=== PATIENT | female | born 1975 | race Caucasian/White ===

== ENCOUNTER 2016-10-19 18:21 | Emergency (ER) | payer OTHER ==
[~2016-10-19] VITALS: Ht 170.2 cm; Wt 79.4 kg
[2016-10-19 18:21] VITALS: BP 151/90
[2016-10-19] MEDS ORDERED: ACETAMINOPHEN 325 MG TAB PO ONE (19:30)
== END 2016-10-19 19:56 | disposition home or self-care (01) ==
LOC: M ED 19:38
DX: S29.011A Strain of muscle and tendon of front wall of thorax, initial encounter (principal); V43.62XA Car passenger injured in collision with other type car in traffic accident, initial encounter; Y92.410 Unspecified street and highway as the place of occurrence of the external cause; Y93.89 Activity, other specified; Y99.8 Other external cause status; J30.2 Other seasonal allergic rhinitis; F17.200 Nicotine dependence, unspecified, uncomplicated

== ENCOUNTER → 2017-01-30 | Outpatient (REF) | payer OTHER | LOC: M SFHCPLAZ 11:58 | PROVIDERS: ATTEND Family Medicine | DX: Z13.220 Encounter for screening for lipoid disorders (principal); Z13.1 Encounter for screening for diabetes mellitus ==

== ENCOUNTER → 2017-01-30 | Outpatient (REF) | payer OTHER | LOC: M SFHCPLAZ 09:04 | PROVIDERS: ATTEND Family Medicine | DX: L57.0 Actinic keratosis (principal); L85.9 Epidermal thickening, unspecified; L08.9 Local infection of the skin and subcutaneous tissue, unspecified ==

== ENCOUNTER → 2017-02-03 | Outpatient (REF) | payer OTHER | LOC: M SFHCPLAZ 11:42 | PROVIDERS: ATTEND Family Medicine | DX: Z01.419 Encounter for gynecological examination (general) (routine) without abnormal findings (principal); Z11.51 Encounter for screening for human papillomavirus (HPV) ==

== ENCOUNTER → 2017-02-10 | Outpatient (CLI) | payer OTHER ==
--- NOTE | 2017-02-10 14:29 | REPMRS ---
Patient History The patient states she has not had a clinical breast exam in over a year. Baseline Mammogram Family history of colorectal cancer in maternal grandmother at age 50 or over. Digital Woman Screen Mammo: February 10, 2017 - Exam #: [id number] Bilateral CC and MLO view(s) were taken. Technologist: Nati Granda, Technologist FINDINGS: There are scattered fibroglandular densities. There is no evidence of cancer on this mammogram. ASSESSMENT: BI-RADS/ACR category 2 mammogram. Benign finding(s). Recommendation Routine screening mammogram of both breasts in 1 year (for women over age 40). This mammogram was interpreted with the aid of an FDA-approved computer-aided dectection system. Electronically Signed By: Guerrero Hargrove MD 02/10/17 [id number]
== END ==
LOC: M WHC 13:15
PROVIDERS: ATTEND Family Medicine
DX: Z12.31 Encounter for screening mammogram for malignant neoplasm of breast (principal)

== ENCOUNTER 2017-12-08 15:50 | Emergency (ER) | payer OTHER | END 2017-12-08 19:14 | disposition home or self-care (01) | LOC: M ED 15:50 | DX: S90.31XA Contusion of right foot, initial encounter (principal); W22.8XXA Striking against or struck by other objects, initial encounter; Y92.89 Other specified places as the place of occurrence of the external cause; J45.909 Unspecified asthma, uncomplicated; F17.210 Nicotine dependence, cigarettes, uncomplicated | CPT/HCPCS: 73630 ==

== ENCOUNTER 2018-03-30 13:24 | Emergency (ER) | payer OTHER ==
[2018-03-30] MEDS ORDERED: METOCLOPRAMIDE INJ 10MG/2ML VIAL (J2765) IV (16:00)
[2018-03-30] MEDS ORDERED: diphenhydrAMINE INJ 50MG/ML VIAL (J1200) IV (16:00)
[2018-03-30] MEDS: NS 1,000 ML IV (16:23)
[2018-03-30] MEDS: KETOROLAC 30 MG/ML VIAL (J1885) IV (16:24)
[2018-03-30 16:42] LABS: BASO % 0.3 % (0.0-1.0); EOS # 0.3 10^3/uL (0.0-0.50); EOS % 2.3 % (0.0-3.0); HEMATOCRIT 44.4 % (36.0-47.0); IMMATURE GRANULOCYTE % 0.3 % (0-3.0); LYMPH # 3.1 10^3/uL (1.5-4.5); LYMPH % 27.1 % (24.0-44.0); MEAN CORPUSCULAR HEMOGLOBIN 30.7 pg (27.0-33.0); MEAN CORPUSCULAR HGB CONC 33.8 g/dl (32.0-36.5); MONO # 1.1 10^3/uL (0.0-0.8); MONO % 9.7 % (0.0-5.0); NEUTROPHILS # 6.8 10^3/uL (1.8-7.7); NEUTROPHILS % 60.3 % (36.0-66.0); PLATELET COUNT, AUTOMATED 334 10^3/uL (150-450); RED BLOOD COUNT 4.88 10^6/uL (4.00-5.40); RED CELL DISTRIBUTION WIDTH 12.3 % (11.5-14.5); WHITE BLOOD COUNT 11.3 10^3/uL (4.0-10.0)
[2018-03-30 16:49] LABS: KETONE, URINE AUTO RFX TRACE mg/dL (NEGATIVE); LEUKOCYTE ESTERASE UR AUTO RFX NEGATIVE (NEGATIVE); MUCUS, URINE RFX SMALL (NEGATIVE); NITRITE, URINE AUTO RFX NEGATIVE (NEGATIVE); RBC, URINE AUTO RFX 4 /HPF (0-3); SPECIFIC GRAVITY UR AUTO RFX 1.011 (1.002-1.035); SQUAM EPITHELIAL CELL UR AURFX 5 /HPF (0-6); WBC, URINE AUTO RFX 1 /HPF (0-3)
[2018-03-30 17:01] LABS: ANION GAP 6 MEQ/L (8-16); BLOOD UREA NITROGEN 8 MG/DL (7-18); CARBON DIOXIDE LEVEL 28 MEQ/L (21-32); CHLORIDE LEVEL 106 MEQ/L (98-107); CREATININE FOR GFR 0.76 MG/DL (0.55-1.30); GLOMERULAR FILTRATION RATE > 60.0 (>58); GLUCOSE, FASTING 76 MG/DL (70-100); MAGNESIUM LEVEL 2.1 MG/DL (1.8-2.4); POTASSIUM SERUM 3.7 MEQ/L (3.5-5.1); SODIUM LEVEL 140 MEQ/L (136-145)
== END 2018-03-30 18:01 | disposition home or self-care (01) ==
LOC: M ED 13:24
DX: R51 Headache (principal); J32.9 Chronic sinusitis, unspecified; J45.909 Unspecified asthma, uncomplicated; F17.210 Nicotine dependence, cigarettes, uncomplicated
CPT/HCPCS: J1885

== ENCOUNTER → 2018-04-13 | Outpatient (REF) | payer OTHER ==
[2018-04-13 12:00] LABS: APPEARANCE, URINE CLEAR (CLEAR); BACTERIA, URINE AUTO NEGATIVE (NEGATIVE); BILIRUBIN, URINE AUTO NEGATIVE (NEGATIVE); BLOOD, URINE BLOOD NEGATIVE (NEGATIVE); COLOR, URINE STRAW (YELLOW); GLUCOSE, URINE (UA) AUTO NEGATIVE (NEGATIVE); KETONE, URINE AUTO NEGATIVE (NEGATIVE); LEUKOCYTE ESTERASE, URINE AUTO NEGATIVE (NEGATIVE); NITRITE, URINE AUTO NEGATIVE (NEGATIVE); PROTEIN, URINE AUTO NEGATIVE (NEGATIVE); RBC, URINE AUTO 2 /HPF (0-3); SPECIFIC GRAVITY URINE AUTO 1.002 (1.002-1.035); SQUAMOUS EPITHELIAL CELL UR AU 1 /HPF (0-6); UROBILINOGEN, URINE AUTO 0.2 mg/dL (0.0-2.0); WBC, URINE AUTO 0 /HPF (0-3)
== END ==
LOC: M SFHCPLAZ 11:10
DX: R31.29 Other microscopic hematuria (principal)

== ENCOUNTER → 2018-12-15 | Outpatient (REF) | payer OTHER ==
[~2018-12-15] MED LIST: ALBU17IN2 INH
[2018-12-15 11:10] LABS: APPEARANCE, URINE HAZY (CLEAR); BACTERIA, URINE AUTO NEGATIVE (NEGATIVE); BILIRUBIN, URINE AUTO NEGATIVE (NEGATIVE); BLOOD, URINE BLOOD NEGATIVE (NEGATIVE); COLOR, URINE YELLOW (YELLOW); GLUCOSE, URINE (UA) AUTO NEGATIVE (NEGATIVE); KETONE, URINE AUTO TRACE mg/dL (NEGATIVE); LEUKOCYTE ESTERASE, URINE AUTO NEGATIVE (NEGATIVE); MUCUS, URINE SMALL (NEGATIVE); NITRITE, URINE AUTO NEGATIVE (NEGATIVE); PROTEIN, URINE AUTO NEGATIVE (NEGATIVE); RBC, URINE AUTO 5 /HPF (0-3); SPECIFIC GRAVITY URINE AUTO 1.026 (1.002-1.035); SQUAMOUS EPITHELIAL CELL UR AU 10 /HPF (0-6); WBC, URINE AUTO 1 /HPF (0-3)
== END ==
LOC: M LAB REF 10:01
PROVIDERS: ATTEND Student in an Organized Health Care Education/Training Program
DX: R30.0 Dysuria (principal)

== ENCOUNTER → 2019-08-12 | Outpatient (REF) | payer OTHER ==
[~2019-08-12] MED LIST changes: -ALBU17IN2 INH; +PROV108A INH
[2019-08-12 11:36] LABS: HEMATOCRIT 45.3 % (36.0-47.0); MEAN CORPUSCULAR HEMOGLOBIN 30.7 pg (27.0-33.0); MEAN CORPUSCULAR HGB CONC 33.1 g/dl (32.0-36.5); MEAN CORPUSCULAR VOLUME 92.8 fl (80.0-96.0); PLATELET COUNT, AUTOMATED 374 10^3/uL (150-450); RED BLOOD COUNT 4.88 10^6/uL (4.00-5.40); WHITE BLOOD COUNT 7.7 10^3/uL (4.0-10.0)
[2019-08-12 11:42] LABS: ALBUMIN 4.1 GM/DL (3.2-5.2); ALT/SGPT 28 U/L (12-78); BILIRUBIN,TOTAL 0.3 MG/DL (0.2-1.0); BLOOD UREA NITROGEN 11 MG/DL (7-18); C REACTIVE PROTEIN QUANTITATIV < 0.30 MG/DL (0.00-0.30); CALCIUM LEVEL 9.4 MG/DL (8.5-10.1); CARBON DIOXIDE LEVEL 30 MEQ/L (21-32); CHLORIDE LEVEL 106 MEQ/L (98-107); CREATININE FOR GFR 0.83 MG/DL (0.55-1.30); GLOMERULAR FILTRATION RATE > 60.0 (>58); GLUCOSE, FASTING 87 MG/DL (70-100); POTASSIUM SERUM 4.3 MEQ/L (3.5-5.1); SODIUM LEVEL 140 MEQ/L (136-145); TOTAL PROTEIN 7.9 GM/DL (6.4-8.2)
[2019-08-12 12:20] LABS: ERYTHROCYTE SEDIMENTATION RATE 5 mm/hr (0-20)
== END ==
LOC: M SFHCPLAZ 09:23
PROVIDERS: ATTEND Family Medicine
DX: R10.9 Unspecified abdominal pain (principal)

== ENCOUNTER → 2019-09-02 | Outpatient (CLI) | payer OTHER ==
[~2019-09-02] MED LIST changes: +GASTROGRAFIN SOLUTION 30ML (Q9963) As Ordered ONE; +ISOVUE-370 76% 100ML VIAL (Q9967) As Ordered ONE
--- NOTE | 2019-09-02 10:23 | REP ---
Clinical: Left-sided abdominal pain. Technique: Axial contrast enhanced images from the lung bases to the pubic symphysis using oral (per protocol) and 100 ml Isovue 370 intravenous contrast material with delayed images of the abdomen. Coronal and sagittal re-formations obtained. Comparison: 07/11/2010. Findings: Lung bases are clear. Visualized heart and pericardium normal. Liver, spleen, pancreas, gallbladder, bilateral adrenal glands and kidneys are normal. The enteric system is without obstruction or acute inflammatory process. Normal terminal ileum and appendix are identified in the right lower quadrant. Few scattered sigmoid diverticula noted without acute diverticulitis. Pelvis demonstrates normal bladder and age-appropriate uterus/adnexa. No pelvic fluid or ascites. No free air. No adenopathy. Abdominal aorta without aneurysm or dissection. Musculoskeletal structures are intact without acute abnormality. Impression: No acute abdominopelvic pathology appreciated. Electronically Signed by Eric Martinez MD 09/02/2019 10:15 A
== END ==
LOC: M RAD 08:06
PROVIDERS: ATTEND Student in an Organized Health Care Education/Training Program
DX: R10.9 Unspecified abdominal pain (principal)

== ENCOUNTER → 2020-08-24 | Outpatient (CLI) | payer OTHER ==
[~2020-08-24] MED LIST changes: -GASTROGRAFIN SOLUTION 30ML (Q9963) As Ordered ONE; -ISOVUE-370 76% 100ML VIAL (Q9967) As Ordered ONE
--- NOTE | 2020-08-24 15:53 | REPMRS ---
Patient History The patient states she has not had a clinical breast exam in over a year. Family history of colorectal cancer at age 50 or over in maternal grandmother. Digital Woman Screen Mammo: August 24, 2020 - Exam #: [id number] Bilateral CC and MLO view(s) were taken. Technologist: Dee Dee Huerta Technologist Prior study comparison: February 10, 2017, digital woman screen mammo performed at [facility]. FINDINGS: There are scattered fibroglandular densities. The Volpara volumetric breast density category is:B. Stable normal appearing lymph nodes are again noted in the left axilla.] There has been no change in the appearance of the mammogram from the prior studies. There is a mild amount of scattered fibroglandular density which is fairly symmetric. There is no interval development of dominant mass, architectural distortion, or grouped microcalcification suggestive of malignancy. 3-D tomosynthesis shows no additional findings. Assessment: BI-RADS/ACR category 2 mammogram. Benign Findings. Recommendation Routine screening mammogram of both breasts in 1 year (for women over age 40). This patient's [facility] Lifetime Breast Cancer Risk is estimated at 8.3 %. This mammogram was interpreted with the aid of an FDA-approved computer-aided dectection system. Electronically Signed By: Anjum Pack MD 08/24/20 [id number]
== END ==
LOC: M WHC 14:56
PROVIDERS: ATTEND Student in an Organized Health Care Education/Training Program
DX: Z12.31 Encounter for screening mammogram for malignant neoplasm of breast (principal)

== ENCOUNTER 2020-10-28 06:50 | Emergency (ER) | payer OTHER ==
[~2020-10-28] VITALS: Ht 170.2 cm; Wt 77.3 kg
[2020-10-28] MEDS ORDERED: ONDANSETRON 4MG/2ML VIAL IV ONE (07:05)
[2020-10-28 07:20] LABS: BASO # 0.1 10^3/uL (0.0-0.2); BASO % 0.7 % (0.0-1.0); EOS # 0.2 10^3/uL (0.0-0.5); EOS % 2.6 % (0.0-3.0); HEMATOCRIT 45.8 % (36.0-47.0); HEMOGLOBIN 15.3 g/dl (12.0-15.5); LYMPH # 2.6 10^3/uL (1.5-5.0); LYMPH % 27.9 % (24.0-44.0); MEAN CORPUSCULAR HEMOGLOBIN 30.7 pg (27.0-33.0); MEAN CORPUSCULAR HGB CONC 33.4 g/dl (32.0-36.5); MONO # 1.3 10^3/uL (0.0-0.8); MONO % 13.7 % (2.0-8.0); NEUTROPHILS # 5.1 10^3/uL (1.5-8.5); NEUTROPHILS % 54.7 % (36.0-66.0); PLATELET COUNT, AUTOMATED 354 10^3/uL (150-450); RED BLOOD COUNT 4.98 10^6/uL (4.00-5.40); WHITE BLOOD COUNT 9.4 10^3/uL (4.0-10.0)
[2020-10-28] MEDS: MORPHINE 4 MG/ML 1ML VIAL/SYRINGE (J2270) IV PRN ×2 (07:20→07:24)
[2020-10-28] MEDS ORDERED: GI COCKTAIL 50ML BTL(HYOSCYAMINE/MAALOX/LIDOCAINE VISCOUS)(1:3:1) PO ONE (07:25)
[2020-10-28 08:01] LABS: ALBUMIN 4.1 GM/DL (3.2-5.2); ALT/SGPT 29 U/L (12-78); BILIRUBIN,DIRECT 0.1 MG/DL (0.0-0.2); BILIRUBIN,TOTAL 0.3 MG/DL (0.2-1.0); BLOOD UREA NITROGEN 19 MG/DL (7-18); CALCIUM LEVEL 9.5 MG/DL (8.5-10.1); CARBON DIOXIDE LEVEL 23 MEQ/L (21-32); CHLORIDE LEVEL 108 MEQ/L (98-107); CREATININE FOR GFR 0.81 MG/DL (0.55-1.30); GLOMERULAR FILTRATION RATE > 60.0 (>58); GLUCOSE, FASTING 106 MG/DL (70-100); LIPASE 211 U/L (73-393); SODIUM LEVEL 138 MEQ/L (136-145); TOTAL PROTEIN 7.8 GM/DL (6.4-8.2)
[2020-10-28] MEDS ORDERED: ISOVUE-370 76% 100ML VIAL As Ordered ONE (08:35)
--- NOTE | 2020-10-28 09:02 | REP ---
INDICATION: CHEST PAIN. COMPARISON: None. TECHNIQUE: SINGLE PORTABLE AP VIEW OF THE CHEST WAS PERFORMED. FINDINGS: THERE IS NO ACUTE INFILTRATE OR PULMONARY EDEMA. LUNGS ARE CLEAR. HEART IS NOT SIGNIFICANTLY ENLARGED. MEDIASTINAL SILHOUETTE IS UNREMARKABLE. THE VISUALIZED OSSEOUS STRUCTURES ARE INTACT. IMPRESSION: NO ACUTE PULMONARY DISEASE. <Electronically signed by Guerrero Hargrove > 10/28/20 0892
--- NOTE | 2020-10-28 09:19 | REP ---
INDICATION: chest pain r/o PE. COMPARISON: None. TECHNIQUE: CT angiogram chest performed following the intravenous administration of 100 cc of Isovue 370. Sagittal and coronal reconstruction images are performed. FINDINGS: Lungs: Clear, no infiltrate or nodule. Mediastinum: No adenopathy. Pulmonary arteries: No evidence of pulmonary embolism. Gladis: No adenopathy. Axilla: 2 asymmetric lymph nodes in the left axilla are upper limits of normal in size, possibly reactive from recent vaccination.. Pleura: No effusion. Heart: Not enlarged. Thoracic aorta: No aneurysm or dissection. Upper abdominal structures: Unremarkable. Visualized osseous structures: Unremarkable. IMPRESSION: No CT evidence of pulmonary embolism. No infiltrate seen. <Electronically signed by Guerrero Hargrove > 10/28/20 [id number]
--- NOTE | 2020-10-28 09:27 | REP ---
INDICATION: upper abd pain COMPARISON: None. TECHNIQUE: CT Scan of the abdomen and pelvis was performed with intravenous administration of 100 cc of Isovue 370, without oral contrast. Sagittal and coronal reconstruction images are performed. FINDINGS: Lung bases: Unremarkable. Liver: Normal Gallbladder: Unremarkable. Spleen: Normal. Adrenals: Normal. Pancreas: Normal. Kidneys: Normal. Small and large bowel: Unremarkable. Free fluid: None. Abdominal aorta: No aneurysm or dissection. Adenopathy: None. Appendix: Not inflamed. Osseous structures: Unremarkable. Pelvis: No mass. IMPRESSION: Negative CT abdomen and pelvis. <Electronically signed by Guerrero Hargrove > 10/28/20 0954
[2020-10-28] MEDS ORDERED: PROT1TAB2 PO (10:12)
[2020-10-28] MEDS ORDERED: SUCR1SS PO (10:12)
[2020-10-28 10:30] VITALS: BP 130/69
--- NOTE | 2020-10-28 16:04 | ECGEPIP ---
[facility] - ED Test Date: 2020-10-28 Pat Name: TASHA ALCALA Department: Room: - Gender: Female Improvement Coordinator: AUSTYN : 1975 Requested By: Daniel Martinez Order Number: [id number] Reading MD: Mason Toribio Measurements Intervals [place] Rate: 80 P: 69 AR: 148 QRS: 75 QRSD: 74 T: 33 QT: 352 QTc: 405 Interpretive Statements Normal sinus rhythm Similar to tracing done 03-30-18 Electronically Signed on 10-28-2020 16:04:17 EDT by Mason Toribio
== END 2020-10-28 10:44 | disposition home or self-care (01) ==
LOC: M ED 06:50
DX: R07.9 Chest pain, unspecified (principal); R06.00 Dyspnea, unspecified; J45.909 Unspecified asthma, uncomplicated; F17.210 Nicotine dependence, cigarettes, uncomplicated
CPT/HCPCS: 36415; 71045; 71275; 74177; 80048; 80076; 83690; 84443; 84484; 85025; 93005; 93041; 94760; 99285; Q9967

== ENCOUNTER 2022-10-01 08:18 | Emergency (ER) | payer OTHER ==
[~2022-10-01] VITALS: Ht 170.2 cm; Wt 78.2 kg
[~2022-10-01 08:18] MED LIST changes: +ALBU6.7H6 INH; +PROT1TAB2 PO; -PROV108A INH; +SUCR1SS PO
[2022-10-01 08:20] VITALS: BP 143/68
== END 2022-10-01 11:26 | disposition home or self-care (01) ==
LOC: M ED 08:18
DX: S80.01XA Contusion of right knee, initial encounter (principal); W00.0XXA Fall on same level due to ice and snow, initial encounter; Y92.009 Unspecified place in unspecified non-institutional (private) residence as the place of occurrence of the external cause; Y93.01 Activity, walking, marching and hiking; Y99.8 Other external cause status

== ENCOUNTER → 2023-01-26 | Outpatient (CLI) | payer OTHER ==
[2023-01-26 09:32] LABS: BASO # 0.1 10^3/uL (0.0-0.2); BASO % 0.7 % (0.0-1.0); EOS # 0.1 10^3/uL (0.0-0.5); EOS % 1.2 % (0.0-3.0); HEMATOCRIT 44.5 % (36.0-47.0); HEMOGLOBIN 15.1 g/dl (12.0-15.5); LYMPH # 2.6 10^3/uL (1.5-5.0); MEAN CORPUSCULAR HGB CONC 33.9 g/dl (32.0-36.5); MEAN CORPUSCULAR VOLUME 91.4 fl (80.0-96.0); MONO % 9.6 % (2.0-8.0); NEUTROPHILS # 6.7 10^3/uL (1.5-8.5); NEUTROPHILS % 63.2 % (36.0-66.0); PLATELET COUNT, AUTOMATED 397 10^3/uL (150-450); RED BLOOD COUNT 4.87 10^6/uL (4.00-5.40); WHITE BLOOD COUNT 10.6 10^3/uL (4.0-10.0)
[2023-01-26 10:12] LABS: BLOOD UREA NITROGEN 10 MG/DL (9-23); CALCIUM LEVEL 9.1 MG/DL (8.5-10.1); CARBON DIOXIDE LEVEL 28 MMOL/L (20-31); CHLORIDE LEVEL 105 MMOL/L (98-107); CHOLESTEROL LEVEL 186 MG/DL (<200); CHOLESTEROL RISK RATIO 3.38 (<5); CREATININE FOR GFR 0.66 MG/DL (0.55-1.30); GLOMERULAR FILTRATION RATE > 60.0 (>58); GLUCOSE, FASTING 100 MG/DL (60-100); HDL CHOLESTEROL 54.9 MG/DL (>40); LDL CHOLESTEROL 111.1 MG/DL (<100); NON-HDL-C 131.1 MG/DL; POTASSIUM SERUM 4.7 MMOL/L (3.5-5.1); SODIUM LEVEL 137 MMOL/L (136-145); TRIGLYCERIDES LEVEL 100 MG/DL (<150)
== END ==
LOC: M CARPUL 08:37
PROVIDERS: ATTEND Student in an Organized Health Care Education/Training Program
DX: Z00.00 Encounter for general adult medical examination without abnormal findings (principal); J45.20 Mild intermittent asthma, uncomplicated; F17.200 Nicotine dependence, unspecified, uncomplicated

== ENCOUNTER → 2023-06-03 | Outpatient (REF) | payer OTHER | LOC: M SFHCPLAZ 17:03 | PROVIDERS: ATTEND Student in an Organized Health Care Education/Training Program | DX: L02.419 Cutaneous abscess of limb, unspecified (principal) ==

== ENCOUNTER 2023-10-02 23:15 | Emergency (ER) | payer OTHER ==
[~2023-10-02] VITALS: Ht 170.2 cm; Wt 82.3 kg
[2023-10-02 23:16] VITALS: BP 141/84; TEMP 97.9; O2SAT 98
== END 2023-10-03 00:56 | disposition left against medical advice (07) ==
LOC: M ED 23:15
DX: Z53.21 Procedure and treatment not carried out due to patient leaving prior to being seen by health care provider (principal)

== ENCOUNTER → 2023-10-20 | Outpatient (CLI) | payer OTHER ==
[2023-10-20 11:29] LABS: ALBUMIN 4.2 G/DL (3.2-5.2); ALKALINE PHOSPHATASE 64 U/L (46-116); ALT/SGPT 25 U/L (7.0-40); AST/SGOT 16 U/L (<34); BILIRUBIN,TOTAL 0.4 MG/DL (0.3-1.2); BLOOD UREA NITROGEN 10 MG/DL (9-23); CALCIUM LEVEL 9.6 MG/DL (8.5-10.1); CARBON DIOXIDE LEVEL 28 MMOL/L (20-31); CHLORIDE LEVEL 106 MMOL/L (98-107); CREATININE FOR GFR 0.73 MG/DL (0.55-1.30); GLOMERULAR FILTRATION RATE > 60.0 (>58); GLUCOSE, FASTING 94 MG/DL (60-100); POTASSIUM SERUM 4.4 MMOL/L (3.5-5.1); SODIUM LEVEL 139 MMOL/L (136-145); TOTAL PROTEIN 7.4 G/DL (5.7-8.2)
[2023-10-20 11:30] LABS: FREE T4 0.98 NG/DL (0.89-1.76); THYROID STIMULATING HORMONE 1.025 uIU/ML (0.55-4.78)
== END ==
LOC: M PLALAB 08:45
PROVIDERS: ATTEND Student in an Organized Health Care Education/Training Program
DX: Z13.29 Encounter for screening for other suspected endocrine disorder (principal); I10 Essential (primary) hypertension

== ENCOUNTER 2023-11-15 20:12 | Emergency (ER) | payer OTHER ==
[~2023-11-15] VITALS: Ht 213.4 cm; Wt 79.5 kg
[2023-11-15] MEDS: MAALOX 30 ML SUSP *UDC PO ONE (20:58)
[2023-11-15 21:30] LABS: BASO # 0.1 10^3/uL (0.0-0.2); BASO % 0.6 % (0.0-1.0); EOS # 0.2 10^3/uL (0.0-0.5); EOS % 2.4 % (0.0-3.0); HEMATOCRIT 41.6 % (36.0-47.0); HEMOGLOBIN 14.3 g/dl (12.0-15.5); LYMPH # 3.4 10^3/uL (1.5-5.0); LYMPH % 34.1 % (24.0-44.0); MEAN CORPUSCULAR HEMOGLOBIN 31.1 pg (27.0-33.0); MEAN CORPUSCULAR HGB CONC 34.4 g/dl (32.0-36.5); MEAN CORPUSCULAR VOLUME 90.4 fl (80.0-96.0); MONO % 9.9 % (2.0-8.0); NEUTROPHILS # 5.2 10^3/uL (1.5-8.5); NEUTROPHILS % 52.5 % (36.0-66.0); PLATELET COUNT, AUTOMATED 379 10^3/uL (150-450); WHITE BLOOD COUNT 9.9 10^3/uL (4.0-10.0)
[2023-11-15 22:20] LABS: LIPASE 51 U/L (12-53)
[2023-11-15 22:22] LABS: ALKALINE PHOSPHATASE 71 U/L (46-116); ALT/SGPT 28 U/L (7.0-40); AST/SGOT 18 U/L (<34); BILIRUBIN,DIRECT < 0.1 MG/DL (<0.4); BILIRUBIN,TOTAL < 0.2 MG/DL (0.3-1.2); BLOOD UREA NITROGEN 10 MG/DL (9-23); CALCIUM LEVEL 9.3 MG/DL (8.5-10.1); CARBON DIOXIDE LEVEL 25 MMOL/L (20-31); CHLORIDE LEVEL 106 MMOL/L (98-107); CK-MB VALUE MASS < 1.0 NG/ML (<3.6); CREATININE FOR GFR 0.87 MG/DL (0.55-1.30); GLOMERULAR FILTRATION RATE > 60.0 (>58); GLUCOSE, FASTING 97 MG/DL (60-100); POTASSIUM SERUM 4.2 MMOL/L (3.5-5.1); SODIUM LEVEL 139 MMOL/L (136-145); TOTAL PROTEIN 7.2 G/DL (5.7-8.2)
[2023-11-15 22:24] LABS: FREE T4 0.99 NG/DL (0.89-1.76); THYROID STIMULATING HORMONE 2.672 uIU/ML (0.55-4.78)
[2023-11-15 22:46] LABS: CPK CREATINE PHOSPHOKINASE 90 U/L (34-145); MB/CK RELATIVE INDEX 1.11 (< OR =4)
[2023-11-15 23:41] LABS: CK-MB VALUE MASS < 1.0 NG/ML (<3.6)
[2023-11-15 23:42] LABS: CPK CREATINE PHOSPHOKINASE 85 U/L (34-145); MB/CK RELATIVE INDEX 1.17 (< OR =4)
[2023-11-16 00:30] VITALS: BP 117/55; TEMP 97.9; O2SAT 99
== END 2023-11-16 00:48 | disposition home or self-care (01) ==
LOC: M ED 20:12
DX: R07.9 Chest pain, unspecified (principal); J45.909 Unspecified asthma, uncomplicated; F17.210 Nicotine dependence, cigarettes, uncomplicated; Z91.09 Other allergy status, other than to drugs and biological substances; Z79.51 Long term (current) use of inhaled steroids

== ENCOUNTER 2024-07-27 14:56 | Emergency (ER) | payer OTHER ==
[~2024-07-27] VITALS: Ht 170.2 cm; Wt 79.5 kg
[2024-07-27 16:50] VITALS: BP 156/74; TEMP 97.7; O2SAT 99
[2024-07-27] MEDS ORDERED: LIDOCAINE W/EPINEPHRINE 1% 20ML VIAL As Ordered ONE (19:42)
[2024-07-27] MEDS: LIDOCAINE W/EPINEPHRINE 1% 20ML VIAL SC ONE (20:00)
== END 2024-07-27 20:08 | disposition home or self-care (01) ==
LOC: M ED 14:56
DX: S61.412A Laceration without foreign body of left hand, initial encounter (principal); Y92.9 Unspecified place or not applicable; Y93.9 Activity, unspecified; Y99.0 Civilian activity done for income or pay; J45.909 Unspecified asthma, uncomplicated; F32.A Depression, unspecified; Z91.09 Other allergy status, other than to drugs and biological substances; Z79.51 Long term (current) use of inhaled steroids

== ENCOUNTER → 2025-05-05 | Outpatient (REF) | payer OTHER | LOC: M SFHCPLAZ 16:48 | PROVIDERS: ATTEND Family Medicine | DX: I10 Essential (primary) hypertension (principal); Z13.1 Encounter for screening for diabetes mellitus; Z13.220 Encounter for screening for lipoid disorders ==

== ENCOUNTER → 2025-05-12 | Outpatient (CLI) | payer OTHER ==
[2025-05-12 12:34] LABS: ESTIMATED AVERAGE GLUCOSE 108.0 MG/DL (60-110)
[2025-05-12 12:53] LABS: ALT/SGPT 24 U/L (7.0-40); AST/SGOT 17 U/L (<34); CALCIUM LEVEL 9.4 MG/DL (8.5-10.1); CARBON DIOXIDE LEVEL 27 MMOL/L (20-31); CHLORIDE LEVEL 107 MMOL/L (98-107); CHOLESTEROL LEVEL 177 MG/DL (<200); CHOLESTEROL RISK RATIO 3.79 (<5); CREATININE FOR GFR 0.80 MG/DL (0.55-1.30); GLOMERULAR FILTRATION RATE > 90.0 (>58); LDL CHOLESTEROL 112.2 MG/DL (<100); NON-HDL-C 130.4 MG/DL; POTASSIUM SERUM 4.6 MMOL/L (3.5-5.1); SODIUM LEVEL 142 MMOL/L (136-145); TRIGLYCERIDES LEVEL 91 MG/DL (<150)
== END ==
LOC: M LAB 11:40
DX: I10 Essential (primary) hypertension (principal); Z13.1 Encounter for screening for diabetes mellitus; Z13.220 Encounter for screening for lipoid disorders